=== PATIENT | male | born 1985 | race Two or more races ===

== ENCOUNTER 2018-12-13 14:51 | Emergency (ER) | payer BC, SELFPAY ==
[2018-12-13 14:52] VITALS: BP 109/58; PULSE 89; RESP 14; TEMP 36.6; O2SAT 99; BMI 18.2
--- NOTE | 2018-12-13 16:20 | ED.VISSUMM ---
- ER Visit Summary Date of Service: 12/13/18 Chief Complaint: Bilateral hand cramping History of Present Illness: The patient is a 32 M presenting with bilateral hand cramping. This started while he was driving. He said he ate an almond brody just before this started. He has eaten almond joys in the past without problems. He had no difficulty breathing or swallowing. He denies chest pain or shortness of breath. He has not taken any new medications. He states that he has been exercising 2-3 times per week which is new for him. He walked 2-3 miles on Monday. He denies nausea, vomiting, diarrhea. He denies numbness or weakness. Denies other complaints. He states he may have been hyperventilating when this started. Physical Examination: Vitals are stable. Patient is afebrile. Alert no acute distress. HEENT exam is unremarkable. Neck is supple. Lungs are clear and equal bilaterally. Heart is regular rate and rhythm. Abdomen is soft nontender nondistended. Extremities are unremarkable. Skin is warm and dry. No focal neurologic deficit. Normal strength and sensation. Remainder of exam is unremarkable. Emergency Department Course and Treatment: Basic metabolic panel is unremarkable. Patient is observed. His symptoms have completely resolved. He will follow-up with primary care physician. Advised return to ED if worsening complaints. Disposition: Discharge home Impression: Hyperventilation syndrome This note was generated with [employer] dictation software. It may contain incorrect words, spelling, and punctuation that were not noted in review of the chart prior to signing ED Disposition - Plan for ED Patient: Instructions: ED Hyperventilation Syndrome Referrals: Regis Hicks III, MD [STAFF PHYSICIAN] - Care Physician,No Primary [Primary Care Provider] -
[2018-12-13 17:12] LABS: Anion Gap 11 (5-15); BUN 12 mg/dL (7-18); BUN/Creat Ratio 10.5 RATIO (10-20); Calcium,Total 9.2 mg/dL (8.5-10.1); Chloride 106 mmol/L (98-107); Creatinine, Serum 1.14 mg/dL (0.70-1.30); EST Glomerular Filtration Rate 80 mL/min (>60); Est Glom Filt Rate - Afr Amer 96 mL/min (>60); Estimated Creatinine Clearance 72.95 ml/min; Glucose 137 mg/dL (74-106); Potassium 3.4 mmol/L (3.5-5.1); Sodium Level 138 mmol/L (136-145)
--- NOTE | 2018-12-13 18:04 | ED.DEP ---
ED Disposition - Plan for ED Patient: Instructions: ED Hyperventilation Syndrome Referrals: Care Physician,No Primary [Primary Care Provider] - Regis Hicks III, MD [STAFF PHYSICIAN] -
[2018-12-13 18:31] VITALS: BP 108/66; PULSE 74; RESP 16; O2SAT 99
== END 2018-12-13 18:31 | disposition home or self-care (01) ==
LOC: ED 16:30
PROVIDERS: Emergency Provider Emergency Medicine
DX: R06.4 Hyperventilation (principal)
CPT/HCPCS: 80048; 99284; A4216